=== PATIENT | male | born 1940 | race Hispanic/Latino ===

== ENCOUNTER 2025-01-09 05:40 | Day surgery (SDC) | payer OTHER ==
[2025-01-07 08:58] LABS: BASOPHILS # (AUTO) 0.04 K/uL (0.00-0.20); BASOPHILS % (AUTO) 0.8 % (0.0-5.0); EOSINOPHILS # (AUTO) 0.08 K/uL (0.00-0.70); EOSINOPHILS % (AUTO) 1.5 % (0.0-8.0); HEMATOCRIT 36.7 % (42-54); IMMATURE GRANULOCYTE ABSOLUTE 0.02 K/uL (0-1); LYMPHOCYTES # (AUTO) 1.5 K/uL (1.0-4.8); LYMPHOCYTES % (AUTO) 27.7 % (21.0-51.0); MEAN CORPUSCULAR HGB CONC 32.7 g/dL (32.0-36.0); MEAN CORPUSCULAR VOLUME 91.8 fL (79-99); MONOCYTES # (AUTO) 0.5 K/uL (0.1-1.0); MONOCYTES % (AUTO) 8.6 % (3.0-13.0); NEUTROPHILS # (AUTO) 3.2 K/uL (1.8-7.7); PLATELET COUNT (AUTO) 175 K/uL (130-400); RED CELL DISTRIBUTION WIDTH 13.3 % (11.0-15.5); WHITE BLOOD COUNT (AUTO) 5.2 K/uL (4.8-10.8)
--- NOTE | 2025-01-07 08:58 | EKG ---
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
[2025-01-07 09:08] LABS: INR 0.96 (0.85-1.15); PROTHROMBIN TIME 10.2 SEC (9.6-11.6)
[2025-01-07 09:11] LABS: CREATININE 0.7 mg/dL (0.5-1.3)
[2025-01-07 09:33] VITALS: BP 177/67; PULSE 84; RESP 18; TEMP 97.3
[2025-01-09] VITALS (7 sets, daily range): BP systolic 120–186; BP diastolic 50–69; PULSE 56–81; RESP 10–18; TEMP 96.9–97.6
[~2025-01-09] VITALS: Ht 162.6 cm; Wt 68.3 kg
[~2025-01-09 05:40] MED LIST: ASPI-1197 PO; COSO10OS OU; DOXA4TAB3 PO; ENZA40TA PO; FERS325 PO; FISH1CAP20 PO; LATA2.5D14 OU; NIFE90TA72 PO; PRED2.5T PO; SITA100T12 PO; SPIR25TA6 PO; TELM80TA10 PO
[2025-01-09] MEDS: 0.9%NACL 1000ML 1,000 ML IV SCH (06:37)
[2025-01-09] MEDS ORDERED: LIDOCAINE HCL 400MG/20ML VIAL ONE (07:39)
[2025-01-09] MEDS ORDERED: SODIUM BICARB 50MEQ 50ML VIAL 50 ML ONE (07:39)
[2025-01-09] MEDS ORDERED: MIDAZOLAM HCL 1 MG/ML 2ML VIAL ONE ×2 (07:40→07:56)
[2025-01-09] MEDS ORDERED: HEParin-NS 1,000 UNIT/500 ML 500 ML IV ONE (07:40)
[2025-01-09] MEDS ORDERED: FENTanyl CITRate PF 50 MCG/1 ML 2ML VIAL ONE (07:40)
[2025-01-09] MEDS ORDERED: ISOPROTERENOL HCL 0.2 MG/ML AMP/VIAL/BAG ONE (08:21)
== END 2025-01-09 11:03 | disposition home or self-care (01) ==
LOC: DAH 05:40
PROVIDERS: ATTEND Internal Medicine Cardiovascular Disease
DX: I44.1 Atrioventricular block, second degree (principal); I45.89 Other specified conduction disorders; I45.10 Unspecified right bundle-branch block; I44.5 Left posterior fascicular block; I10 Essential (primary) hypertension; E78.5 Hyperlipidemia, unspecified; E11.9 Type 2 diabetes mellitus without complications; Z83.3 Family history of diabetes mellitus; Z79.899 Other long term (current) drug therapy; Z79.82 Long term (current) use of aspirin; Z79.01 Long term (current) use of anticoagulants; Z82.49 Family history of ischemic heart disease and other diseases of the circulatory system
CPT/HCPCS: 80048; 85025; 85610; 85730; 36415; 93005; 93619; 93623; 82948 ×2; A4223 ×3; C1894; C1730 ×2; C1760 ×2; J3010; J3490 ×3; J7030; J2250 ×2; J1644; A4215; A4222; A4221; A4216; A4606; 99156; 99157